=== PATIENT | male | born 1955 | race Caucasian/White ===

== ENCOUNTER 2022-05-08 17:59 | Emergency (ER) | payer MEDICARE, SELFPAY ==
[2022-05-08] VITALS (7 sets, daily range): BP systolic 107–135; BP diastolic 70–72; PULSE 60–76; RESP 16–23; TEMP 36.6; O2SAT 93–99
--- NOTE | ~2022-05-08 | CT_ITS ---
EXAMINATION: CT brain wo con DATE: 05/08/2022 18:27 INDICATION: dizziness, weakness, nausea . TECHNIQUE: Computed tomography (CT) of the head was performed without intravenous contrast. The mA wa s adjusted according to patient size. Iterative reconstruction technique was employed. The dose-lengt h product was 605.33 mGy-cm. COMPARISON: None. FINDINGS: No acute intracranial hemorrhage or extra-axial fluid collection. No hydrocephalus, mass, or herniation. No acute ischemic infarct. Unremarkable dural venous sinus attenuation. No acute osseous abnormality. The aerated spaces are clear. Mild atrophy and chronic white matter change. Atherosclerotic intracranial calcification. 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 IMPRESSION: No acute intracranial process. Reviewed, dictated and finalized at location K. MANAGER
--- NOTE | 2022-05-08 18:14 | ECG_ITS ---
Measurements Intervals [place] Rate: 62 P: 215 KS: 140 QRS: 230 QRSD: 135 T: 54 QT: 473 QTc: 482 Interpretive Statements ELECTRONIC ATRIAL PACEMAKER ELECTRONIC VENTRICULAR PACEMAKER ATYPICAL ECG NO PREVIOUS ECG AVAILABLE FOR COMPARISON Electronically Signed On 05-09-2022 10:07:14 SYSTEM SUPPORT ANALYST by Fletcher Moseley M.D.
--- NOTE | 2022-05-08 18:17 | ED.NAVMDI ---
HPI - Nausea/Vomiting/Diarrhea General Chief complaint: Dizziness <Dinora Anderson PA-C - Last Filed: 05/08/22 22:00> Stated complaint: N/V, weakness <Dinora Anderson PA-C - Last Filed: 05/08/22 22:00> Time Seen by Provider: 05/08/22 18:05 <Dinora Anderson PA-C - Last Filed: 05/08/22 22:00> History of Present Illness HPI Narrative: 66-year-old male with a history of A-fib status post pacemaker placement, hyperlipidemia, hypertension here for evaluation of dizziness over the past 2 days. Patient describes the sensation as a room spinning sensation, there are when he turns his head or changes position. He also notes mild headache, nausea and countless episodes of vomiting, states he has been unable to tolerate any p.o. today. Reports that he has felt fatigued over the past 5 days and did have preceding upper respiratory symptoms including congestion, ear pain and mild cough. These have since resolved. He had his pacemaker routinely interrogated 2 weeks ago and it was functioning normally without any events. No chest pain, shortness of breath, fevers or chills, diarrhea, abdominal pain. <SCOOTER Philippe Last Filed: 05/08/22 22:00> Related Data Allergies/Adverse reactions: Allergies Allergy/AdvReac Type Severity Reaction Status Date / Time No Known Allergies Allergy Verified 05/08/22 18:03 <Dinora Anderson PA-C - Last Filed: 05/08/22 22:00> Review of Systems Review of Systems: Gen.: Reports fatigue. Denies fevers or chills Eyes: Denies eye pain or visual change ENT: Denies congestion Respiratory: Denies shortness of breath or cough CV: Denies chest pain or palpitations GI: Reports nausea and vomiting. Denies abdominal pain or diarrhea denies burning, urgency, frequency or hematuria Musculoskeletal: Denies back pain or muscle pain Neuro: Reports dizziness. Denies numbness, tingling, weakness or focal weakness Skin: Denies rash Except as documented, all other systems reviewed and negative <SCOOTER Philippe Last Filed: 05/08/22 22:00> Exam Narrative: APPEARANCE: Well appearing, no pain in distress, well-nourished. Head: Normocephalic and atraumatic. EYES: PERRLA/EOMI, conjunctivae clear NOSE: No nasal drainage EARS: Patient's TMs are cloudy bilaterally, no mastoid tenderness, no pain with movement of the tragus THROAT: Oropharynx is clear. Mucous membranes are moist. NECK: Supple. No adenopathy, no masses. RESPIRATORY: Airway patent, respirations nonlabored. Clear to auscultation bilaterally, no rales, rhonchi, wheezing. CARDIOVASCULAR: Regular rate and rhythm without murmurs, rubs, or gallops. ABDOMINAL: Normoactive bowel sounds. Soft, nontender, nondistended. No rebound tenderness or guarding. MUSCULOSKELETAL: Extremities are warm and well-perfused. Moves all extremities well. No edema. NEURO: Cranial nerves II through XII intact. [id number] normal. No drift of upper or lower extremities. No weakness noted. Normal speech. No focal neurologic deficits. SKIN: Skin is warm and dry. No rashes. PSYCHIATRIC: Normal affect/mood. <Dinora Anderson PA-C - Last Filed: 05/08/22 22:00> Course DIRECTOR VOICE/PA Physician Supervision For this encounter, I have reviewed the PA documentation, treatment plan and medical decision making: And I have had [id number] time with the patient. On exam heart regular rate and rhythm without murmur, lungs clear to station bilaterally, the abdomen soft nontender. Patient is awake and alert no focal deficits noted states that dizziness has improved discussed positional vertigo discussed plan for discharge home with ENT all questions answered patient in agreement at this time <Sabas Keene DO - Last Filed: 05/08/22 20:53> Vital Signs Vital signs: Vital Signs Temperature 97.8 F 05/08/22 18:01 Pulse Rate 76 05/08/22 18:01 Respiratory Rate 18 05/08/22 18:01 Blood Pressure 135/72 05/08
[2022-05-08] MEDS: ONDANSETRON INJ 4 MG/2 ML VIAL IV PUSH (18:45)
[2022-05-08 18:46] LABS: Basophils Absolute Auto 0.1 K/mm3 (0.0-0.1); Basophils Percent Auto 0.6 % (0.2-1.2); Eosinophils Absolute Auto 0.1 K/mm3 (0-0.3); Eosinophils Percent Auto 1.2 % (0-4.4); Hematocrit 53.3 % (42.0-52.0); Hemoglobin 17.5 g/dL (14.0-18.0); Immature Granulocyte Absolute 0.03 K/mm3 (0.00-0.031); Immature Granulocyte Percent A 0.3 % (0-0.5); Lymphocytes Absolute Auto 3.21 K/mm3 (0.9-3.2); Lymphocytes Percent Auto 32.5 % (18.3-44.2); Mean Corpuscular HGB Conc 32.8 g/dl (32-36); Mean Corpuscular Hemoglobin 31.8 pg (26-34); Mean Corpuscular Volume 96.9 fl (80-100); Mean Platelet Volume 9.2 fl (7.4-10.4); Monocytes Absolute Auto 0.7 K/mm3 (0.1-0.6); Monocytes Percent Auto 6.6 % (2.6-8.5); Neutrophils Absolute Auto 5.8 K/mm3 (1.3-6.7); Neutrophils Percent Auto 58.8 % (45.5-73.1); Platelet Count Result 277 k/mm3 (150-375); Red Cell Distribution Width 13.5 % (11.5-14.5); White Blood Count 9.9 K/mm3 (4.5-10.0)
[2022-05-08] MEDS: SODIUM CHLORIDE 0.9% IV 1,000 ML 999 ML IV CONT ×2 (18:46→20:33)
[2022-05-08 18:57] LABS: Alanine Aminotransferase 20 U/L (6-50); Albumin Level 5.1 g/dL (3.5-5.1); Alkaline Phosphatase 50 U/L (38-126); Anion Gap 11 mmol/L (8-16); Aspartate Amino Transferase 30 U/L (17-59); Bilirubin,Total 0.8 mg/dL (0.2-1.3); Blood Urea Nitrogen 28 mg/dL (9-20); Calcium 9.5 mg/dL (8.4-10.2); Carbon Dioxide 28 mmol/L (22-30); Chloride 104 mmol/L (98-107); Estimated CRCL calculation 69 ml/min; Estimated Glomerular Filt Rate > 60; Glucose 80 mg/dL (65-110); Lipase 107 U/L (23-300); Potassium 4.2 mmol/L (3.4-5.0); Sodium 143 mmol/L (137-145)
[2022-05-08] MEDS: MECLIZINE HCL 25 MG TABLET PO (19:23)
[2022-05-08 20:09] LABS: Influenza A QL RT-PCR Negative (Negative); Influenza B QL RT-PCR Negative (Negative); SARS-CoV-2 RNA PCR Negative
[2022-05-08 20:18] LABS: Appearance Urine Clear (Clear); Bilirubin Urine 1+ (Negative); Blood Urine Negative (Negative); Glucose Urine UA 2+ mg/dL (Negative); Ketones Urine 3+ mg/dL (Negative); Leukocyte Esterase Ur Negative LEU/UL (Negative); Nitrate Urine Negative (Negative); Protein Urine 1+ mg/dL (Negative); Specific Grav Ur >= 1.030 (1.001-1.035); pH Urine 5.5 (5.0-9.0)
[2022-05-08 20:22] LABS: Bacteria Urine Trace /hpf; Mucus Urine Moderate /lpf; Squamous Epithelial Cell Urine Rare /hpf (Few); WBC Urine 0-3 /hpf
[2022-05-08 20:23] LABS: Color Urine Dark Yellow (Yellow)
[2022-05-08 20:24] LABS: Add Urine Microscopic? YES
== END 2022-05-08 21:30 | disposition home or self-care (01) ==
PROVIDERS: Emergency Provider Physician Assistant
DX: H74.93 Unspecified disorder of middle ear and mastoid, bilateral (principal); Z95.0 Presence of cardiac pacemaker; Z20.822 Contact with and (suspected) exposure to COVID-19; I10 Essential (primary) hypertension; E78.5 Hyperlipidemia, unspecified
CPT/HCPCS: 36415; 70450; 80053; 81001; 83690; 85025; 87636; 93005; 96361; 96374; 99284; A9270; J2405; J7030